=== PATIENT | female | born 1985 | race Caucasian/White ===

== ENCOUNTER 2019-11-20 12:26 | Outpatient (CLI) | payer OTHER, MEDICARE, MEDICAID, SELFPAY | END 2019-11-20 12:27 | disposition home or self-care (01) | PROVIDERS: PCP Internal Medicine; Visit Provider Internal Medicine | DX: L02.92 Furuncle, unspecified (principal) | CPT/HCPCS: 87081 ==

== ENCOUNTER 2022-07-26 16:10 | Emergency (ER) | payer MEDICARE, MEDICAID, SELFPAY ==
--- NOTE | 2022-07-26 16:17 | ED.EAR ---
HPI - Ear Problem General Chief complaint: Ear Stated complaint: EARACHE Time Seen by Provider: 07/26/22 16:17 Source: patient and RN notes reviewed History of Present Illness HPI Narrative: Patient is a 37-year-old female who presents to Urgent Care with her mother with complaints of left earache. Mother states that it started yesterday after she was outside swimming. Mother states that she did use her Flonase and her daily Zyrtec however the patient continued to complain of ?pounding and ringing in the ear. Patient is currently denying any pain, ringing or discomfort. Mother states that the home health nurse told her that she could have ?permanent hearing loss if she had fluid in her ear and ?. Therefore the mother is concerned about possible hearing loss. Patient appears to be comfortable with ear phones to her ears listening to music. No acute distress noted. Some parts of this dictation were generated by voice recognition software and may contain typographical and/or grammatical inaccuracies. Related Data Home Medications Medication Instructions Recorded Confirmed cholecalciferol (vitamin D3) 25 2,000 unit PO DAILY 12/08/20 02/15/22 mcg (1,000 unit) capsule cetirizine 10 mg tablet 10 mg PO DAILY PRN 07/06/21 02/15/22 Allergies Allergy/AdvReac Type Severity Reaction Status Date / Time No Known Allergies Allergy Mild Verified 07/26/22 16:21 Review of Systems Review of Systems: CONSTITUTIONAL: Denies fever, chills, or sweats. EYES: Denies visual changes, redness, or discharge. ENT: Denies rhinorrhea, congestion, sore throat. Reports of left otalgia CARDIOVASCULAR: Denies chest pain, palpitations, or edema. RESPIRATORY: Denies cough or dyspnea. GASTROINTESTINAL: Denies abdominal pain, nausea, vomiting, or diarrhea. GENITOURINARY: Denies dysuria or hematuria. SKIN: Denies rash or itching. MUSCULOSKELETAL: Denies back pain, joint pain, or myalgia. NEUROLOGIC: Denies headache, numbness, or weakness. All other systems reviewed are negative, except as documented in HPI. [facility] Past Medical History Medical History Abnormal finding of blood chemistry BMI 28.0-28.9,adult BMI 31.0-31.9,adult BMI 33.0-33.9,adult Boils Down syndrome Encounter for preventive health examination Encounter for routine adult health examination without abnormal findings Hydradenitis On snf drug therapy Family History Family History Mother Family history of osteoarthritis Family history of allergic disorder Patient's mother is in good health Family history of hypercholesterolemia Father Family history of Hodgkin's lymphoma Grandparent Cerebrovascular accident Family history of malignant neoplasm of esophagus Other Family history of arthritis Social History Social History (Updated 02/13/22 @ 11:21 by Silvia Rosales MA) Smoking status: Never smoker Second hand tobacco smoke exposure: No Alcohol intake: never Lack of Transportation: No Lack of Food: Never True Current Housing: I Have Housing Concerned About Future Housing: No Difficulty Paying Gas/Electric Bills: No Difficulty Paying for Meds: No Currently Unemployed: No Education: High School Diploma/GED Difficulty w/ Childcare or Family Care: No Comments At the time of my signature, I reviewed and agree with the nursing past medical, surgical, social, and family history. There is no relevant family history pertinent to the patient complaint. Exam Narrative: GENERAL: This is a well-nourished, well-developed patient, in no apparent distress. HEAD: normocephalic, atraumatic. EYES: PERRL. Sclera clear/white. Vision is grossly intact. EARS: External ears normal, auditory canals clear and without drainage, TMs normal without perforation. Hearing grossly intact. NOSE: External nose normal with no obvious nasal discharge, nares witho
[2022-07-26 16:25] VITALS: BP 88/79; PULSE 75; RESP 16; TEMP 36.4; O2SAT 100
== END 2022-07-26 17:17 | disposition home or self-care (01) ==
PROVIDERS: Emergency Provider Nurse Practitioner Family; PCP Internal Medicine
DX: H92.02 Otalgia, left ear (principal); Q90.9 Down syndrome, unspecified
CPT/HCPCS: 99211; G0463

== ENCOUNTER 2023-10-15 16:06 | Outpatient (CLI) | payer MEDICARE, MEDICAID, SELFPAY | END 2023-10-15 16:07 | disposition home or self-care (01) | PROVIDERS: PCP Internal Medicine; Visit Provider Internal Medicine | DX: R05.3 Chronic cough (principal) | CPT/HCPCS: 87081 ==

== ENCOUNTER 2023-10-16 11:00 | Outpatient (CLI) | payer MEDICARE, MEDICAID, SELFPAY ==
--- NOTE | ~2023-10-16 | XR_ITS ---
XR chest 2V Ordering provider: Benedicto Bolton MD History: 38 years Female with . R05.9 - Cough, unspecified - RECENTLY COVID -19+ . Comparison: March 11, 2013 FINDINGS: MEDIASTINUM: The cardiac silhouette is not enlarged. LUNGS: No infiltrates, effusions or pneumothorax. Prominent markings in the left lower lobe area. OTHER: No free air under the diaphragm. IMPRESSION: No acute cardiopulmonary pathology. Reviewed, dictated and finalized at location A.
[2023-10-16 11:20] LABS: Basophils Percent Auto 0.4 % (0.2-1.2); Eosinophils Absolute Auto 0.2 K/mm3 (0-0.3); Hematocrit 38.8 % (37.0-47.0); Hemoglobin 12.9 g/dL (12.0-15.0); Immature Granulocyte Absolute 0.02 K/mm3 (0.00-0.031); Immature Granulocyte Percent A 0.2 % (0-0.5); Lymphocytes Absolute Auto 1.49 K/mm3 (0.9-3.2); Lymphocytes Percent Auto 17.9 % (18.3-44.2); Mean Corpuscular HGB Conc 33.2 g/dl (32-36); Mean Corpuscular Hemoglobin 31.2 pg (26-34); Mean Corpuscular Volume 93.7 fl (80-100); Mean Platelet Volume 9.6 fl (7.4-10.4); Monocytes Absolute Auto 0.8 K/mm3 (0.1-0.6); Monocytes Percent Auto 9.5 % (2.6-8.5); Neutrophils Absolute Auto 5.8 K/mm3 (1.3-6.7); Platelet Count Result 339 k/mm3 (150-375); Red Blood Count 4.14 M/mm3 (4.2-5.4); Red Cell Distribution Width 12.5 % (11.5-14.5); White Blood Count 8.3 K/mm3 (4.5-10.0)
== END 2023-10-16 11:01 | disposition home or self-care (01) ==
PROVIDERS: PCP Internal Medicine; Visit Provider Internal Medicine
DX: R05.9 Cough, unspecified (principal); Z86.16 Personal history of COVID-19
CPT/HCPCS: 36415; 71046; 85025

== ENCOUNTER 2024-03-05 16:29 | Outpatient (CLI) | payer MEDICARE, MEDICAID, SELFPAY ==
--- NOTE | ~2024-03-05 | CT_ITS ---
EXAMINATION:CT diagnostic chest wo con DATE: 03/05/2024 16:50 INDICATION: Cough, unspecified. TECHNIQUE: Computed tomography (CT) of the chest was performed without intravenous contrast. Automate d exposure control and iterative reconstruction technique were employed. The dose-length product (DLP ) was 411.60 mGy-cm. COMPARISON: Chest 2 views 10/16/2023 FINDINGS: There is no pneumonia or bronchiectasis. No pleural effusion. The heart size is normal. The re is a small pericardial effusion. There is mild thoracic spondylosis. IMPRESSION: 1. Small pericardial effusion. Reviewed, dictated and finalized at location A. BOAT ENGINEER
== END 2024-03-05 16:30 | disposition home or self-care (01) ==
PROVIDERS: PCP Internal Medicine; Visit Provider Internal Medicine
DX: R05.9 Cough, unspecified (principal); I31.39 Other pericardial effusion (noninflammatory)
CPT/HCPCS: 71250

== ENCOUNTER 2024-03-07 08:32 | Outpatient (CLI) | payer MEDICARE, MEDICAID, SELFPAY ==
--- NOTE | ~2024-03-07 | XR_ITS ---
EXAMINATION: XR barium swallow DATE: 03/07/2024 09:14 INDICATION: Cough TECHNIQUE: The patient drank thick barium, and thin barium. Fluoroscopy of the hypopharynx and esopha davina was performed. Fluoroscopy exposure time was 2.3 minutes. The total number of images was 79. The dose-area product was 27.2 Gy-cm^2. COMPARISON: Reference is made to CT examination of the chest dated 03/05/2024 FINDINGS: There is no mass or stricture of the esophagus. Esophageal motility is unremarkable. There is only a small hiatal hernia. Trace gastroesophageal reflux was observed. IMPRESSION: Small hiatal hernia with trace gastroesophageal reflux Reviewed, dictated and finalized at location A. A RECONCILIATION SPECIALIST
== END 2024-03-07 08:33 | disposition home or self-care (01) ==
LOC: ANHIMG 08:33
PROVIDERS: PCP Internal Medicine; Visit Provider Internal Medicine
DX: K44.9 Diaphragmatic hernia without obstruction or gangrene (principal); R05.9 Cough, unspecified
CPT/HCPCS: 74220

== ENCOUNTER 2024-08-18 12:20 | Outpatient (CLI) | payer MEDICARE, MEDICAID, SELFPAY ==
--- NOTE | ~2024-08-18 | XR_ITS ---
Clinical Indication: Cough PA and lateral views of the chest: Comparison: 10/16/2023 Findings: The lungs are clear, without evidence of focal consolidation or pleural effusion. Cardiome diastinal silhouette is within normal limits. Bones and soft tissues are unremarkable. Impression: Normal chest. Reviewed, dictated and finalized at location . Impression: Normal chest.
--- OUTSIDE RECORDS SUMMARY | 2024-08-18 12:46 | XMS_ITS | Continuity of Care Document ---
Author Organization [facility] Address [address] [place] [address] Phone Care Team Providers Care Resident Doctor Name Role Phone James Delaney Unavailable Unavailable Procedures Procedure Date Eye Exam & Treatment Refraction Eye Exam & Treatment Refraction Eye Exam & Treatment Advance Directives Directive Yes / No Effective Date File Name No Information Encounters Encounter Description Practice Location Reason(s) For Visit Diagnoses Date Provider Providers Copied on Encounter [facility], [id number] [place] [address] [address], [place], [place], [id number], [place] tel:[phone] [facility] No Information 6-201 0 Rhett Ramirez. [address], [place], [place], [facility], . tel:[phone] [facility], [address], [place], [place], [id number], [place] tel:[phone] [facility] No Information 2-200 9 Kinza Roberts. [address], [place], [place], [facility], [place]. tel:[phone] [facility], [address], [place], [place], [id number], [place] tel:[phone] [facility] No Information 8 Rhett Ramirez. [address] , [address], [place], [address], [place]. tel:[phone] Family History Family Member Type Diagnosis Age At Onset No Information Payers Payer name Insurance type Covered alliance party ID Authoriza tion(s) No Information Social History Type Description Quantity Date Captured Comments Sex Female Smoking Status No Information Chief Complaint And Reason For Visit No Information Reason For Referral Reason For Referral No Information History Of Present Illness Encounter Date Complaint History Of Prese nt Illness No Information Functional Status Date Functional Assessmen t No Information Instructions Date Instruction Additional Infor mation No Information Assessments Type Assessment Date No Information Patient Care Teams Name Effective Dates (start - stop) Status Members No Information
--- OUTSIDE RECORDS SUMMARY | 2024-08-18 12:46 | XMS_ITS | Clinical Summary ---
Author Organization [facility] Address [address] [place] [address] Care Team Providers Care Straight Line Edger Name Role Phone Benedicto Bolton MD Primary Care Provider [phone] Source Comments [facility],non-[facility] Affiliates and Associated Physician Practices is amultiple site organization consisting of ambulatory clinics and hospital sitesin [place], [place], [place] and [place]. This disclosure is being madepursuant to the Care Everywhere program and may not contain all information available regarding this patient. Last updated 18.[facility] Allergies No known active allergies Medications * Be aware that medications may not be up to date on this document. Alwaysverify current medications with the patient. fluticasone propionate (FLONASE) 50 MCG/ACT nasal spray [place] 2 sprays into each nostril once daily Active hydrocortisone (HYTONE) 2.5 % ointmentIndicatio ns:Rash and other nonspecific skin eruption Apply to irritated pink area near eye twice daily for 1 week. 30 days supply. 30 g 8 Active Additional Information Patient not taking.Reported on 06/04/2018 ketoconazole (NIZORAL) 2 % creamIndications: Other seborrheic dermatitis Apply to pink scaly area near eye twice daily as needed. 30 days supply. 60 g 2 8 Active ketoconazole (NIZORAL) 2 % shampooIndication s:Other seborrheic dermatitis Apply to wet scalp and face, leave on for 3-5 minutes, then rinse; three times weekly. 30 days supply 120 mL 2 8 Active VITAMIN D, CHOLECALCIFEROL, PO Take 1 tablet by mouth once daily Active Calcium Polycarbophil (FIBERCON PO) Take 1 tablet by mouth once daily Active cetirizine (ZYRTEC) 10 MG tablet Take 10 mg by mouth once daily Active docusate sodium (COLACE) 100 MG capsule Take 100 mg by mouth once daily Active tacrolimus (PROTOPIC) 0.1 % ointmentIndicatio ns:Other seborrheic dermatitis Apply to facial lesions two times daily. 30 days supply. 60 g 3 9 Active doxycycline monohydrate 100 MG capsuleIndication s:Hidradenitis suppurativa Take 1 capsule by mouth 2 times daily 60 capsule 2 9 Active triamcinolone acetonide (KENALOG) 0.1 % ointmentIndicatio ns:Granuloma annulare,Other eczema Apply BID PRN to lesions on the body and arms. 30 day supply 454 g 1 9 Active Active Problems No known active problems Immunizations Immunization Administration Dates Next Due FLU VACCINE QUAD IIV4 PF ID 01/25/2016 INFLUENZA VACCINE, QUADR. (F LUZONE; FLULAVAL; FLUARIX; AFLURIA QUADRIVALENT; 6MO+), 0.5 ML (IIV4) 12/07/2017,01/10/2017 Family History Medical History Relation Name Comments Asthma Neg Hx CVA Neg Hx Cancer - Breast Neg Hx Cancer - Other Neg Hx Cancer - Skin, Melanoma Neg Hx Cancer - Skin, Non Melanoma Neg Hx Eczema Neg Hx Hemophilia Neg Hx Psoriasis Neg Hx Social History Tobacco Use Types Packs/Day Years Used Date Smoking Tobacco: Never Smokeless Tobacco: Never Alcohol Use Standard Drinks/Week Comments No 0 (1 standard drink = 0.6 oz pur e alcohol) Comments Unknown Sex and Gender Information Value Date Recorded Sex Assigned at Not on file Legal Sex Female 2:05 PM CDT Gender Identity Not on file Sexual Orientation Not on file Plan of Treatment Health Maintenance Due Date Last Done Comments HIV SCREENING 2001 HEPATITIS C SCREENING 12/28/2003 DTAP/TDAP/TD VACCINES (1 - Tdap) 2005 HEPATITIS B VACCINE (1 of 3 - 19+ 3-dose series) 2005 COVID-19 VACCINE (1 2023-2 5 season) 2023 DEPRESSION SCREENING 04/16/2024 INFLUENZA VACCINE (Season Ended) 2024 12/07/2017, 01/10/2017, 01/25/2016 ZOSTER VACCINE (1 of 2) 01/02/2036 HIB VACCINE Aged Out No longer eligi ble based on patient's age to complete this topic HPV VACCINE Aged Out No longer eligi ble based on patient's age to complete this topic MENINGOCOCCAL (Group B) VACCINE SHARED DECISION-MAKING Aged Out No longer eligible based on patient's age to complete this topic MENINGOCOCCAL GROUPS A/C/Y/W VACCINE Aged Out No longer eligible b ased on patient's age to complete this topic PNEUMOCOCCAL VACCINE Aged Out No long er eligible based on patient's age to complete this topic Insurance [facility] MEDICAID - OUT OF [facility] MEDICARE ANTH Care Teams Straight Line Edger Relationship Specialty Start Date End Date Benedicto Bolton MD [address] [place] [address] PCP - General Internal Medicine 01/25/16
[2024-08-21 16:58] LABS: B. pertussis Source Swab
== END 2024-08-18 12:21 | disposition home or self-care (01) ==
PROVIDERS: PCP Internal Medicine; Visit Provider Internal Medicine
DX: R05.9 Cough, unspecified (principal)
CPT/HCPCS: 71046; 87798

== ENCOUNTER 2024-09-12 07:09 | Outpatient (CLI) | payer MEDICARE, MEDICAID, SELFPAY ==
--- NOTE | ~2024-09-12 | CT_ITS ---
CT Scan of the Chest without Contrast: Clinical Indication: Cough Technique: Contiguous sections were acquired throughout the chest without intravenous contrast. Dose reduction technique was used on this scan by utilizing automated exposure control and iterative recon struction technique. The dose-length product (DLP) was 383.55 mGy-cm. COMPARISON: 03/05/2024 Findings: There is no evidence of any significant mediastinal, hilar or axillary lymphadenopathy. The mediastin al soft tissues appear normal. There is no evidence of pleural or pericardial effusion. The lungs are clear. No pulmonary nodules or infiltrates are noted. Images through the upper abdomen reveal no abnormalities. Impression: No significant abnormalities seen. Reviewed, dictated and finalized at location . Impression: No significant abnormalities seen.
--- OUTSIDE RECORDS SUMMARY | 2024-09-12 07:14 | XMS_ITS | Continuity of Care Document ---
Author Organization [facility] Address [address] [place] [address] Phone Care Team Providers Care Tourist Agent Name Role Phone James Delaney Unavailable Unavailable Procedures Procedure Date Eye Exam & Treatment Refraction Eye Exam & Treatment Refraction Eye Exam & Treatment Advance Directives Directive Yes / No Effective Date File Name No Information Encounters Encounter Description Practice Location Reason(s) For Visit Diagnoses Date Provider Providers Copied on Encounter [facility], [id number] [place] [address] [address], [place], [place], [id number], [place] tel:[phone] [facility] No Information 6-201 0 Rhett Ramirez. [address], [place], [place], [facility], . tel:[phone] [facility], [address], [place], [place], [id number], [place] tel:[phone] [facility] No Information 2-200 9 Kinza Roberts. [address], [place], [place], [facility], [place]. tel:[phone] [facility], [address], [place], [place], [id number], [place] tel:[phone] [facility] No Information 8 Rhett Ramirez. [address] , [address], [place], [address], [place]. tel:[phone] Family History Family Member Type Diagnosis Age At Onset No Information Payers Payer name Insurance type Covered republican ID Authoriza tion(s) No Information Social History [...]
--- OUTSIDE RECORDS SUMMARY | 2024-09-12 07:14 | XMS_ITS | Clinical Summary ---
Author Organization [facility] Address [address] [place] [address] Care Team Providers Care Tosser Name Role Phone Benedicto Bolton MD Primary Care Provider [phone] Source Comments [facility],non-[facility] Affiliates and Associated Physician Practices is amultiple site organization consisting of ambulatory clinics and hospital sitesin [place], [place], [place] and [place]. This disclosure is being madepursuant to the Care Everywhere program and may not contain all information available regarding this patient. Last updated 18.[facility] Allergies No known active allergies Medications * Be aware that medications may not be up to date on this document. Alwaysverify current medications with the patient. fluticasone propionate (FLONASE) 50 MCG/ACT nasal spray [place] 2 sprays into each nostril once daily [...] patient's age to complete this topic Insurance [facility] MEDICAID - OUT OF [facility] MEDICARE ANTH Care Teams Tosser Relationship Specialty Start Date End Date Benedicto Bolton MD [address] [place] [address] PCP - General Internal Medicine 01/25/16
== END 2024-09-12 07:10 | disposition home or self-care (01) ==
PROVIDERS: PCP Internal Medicine; Visit Provider Internal Medicine
DX: R05.9 Cough, unspecified (principal)
CPT/HCPCS: 71250

== ENCOUNTER 2024-12-05 14:51 | Outpatient (CLI) | payer MEDICARE, MEDICAID, SELFPAY ==
--- NOTE | ~2024-12-05 | XR_ITS ---
EXAMINATION: XR chest 2V 12/05/2024 15:13 INDICATION: Cough PROCEDURE: 2 view chest COMPARISON: 08/18/2024 FINDINGS: The lungs are clear. The cardiomediastinal silhouette is within normal limits. There are no pleural effusions. There is no pneumothorax suspected. IMPRESSION: 1: NO ACUTE CARDIOPULMONARY DISEASE. Reviewed, dictated and finalized at location O.
--- OUTSIDE RECORDS SUMMARY | 2024-12-05 14:56 | XMS_ITS | Clinical Summary ---
Author Organization [facility] Address [address] [place] [id number] Care Team Providers Care Special Effects Artist Name Role Phone Benedicto Bolton MD Primary Care Provider [phone] Allergies Active Allergy Reactions Criticality Noted Date Comments Haloperidol Encounters Date Type Department Care Team Description 09/12/2024 12:06 PM CDT - 09/12/2024 11:59 PM CDT Hospital Encounter [facility] [address] [place] [id number] Cough, unspecified type Discharge Disposition: Discharge to home or self care from Last 3 Months Social History Tobacco Use Types Packs/Day Years Used Date Smoking Tobacco: Never Assessed Comments Unknown Sex and Gender Information Value Date Recorded Sex Assigned at Not on file Legal Sex Female 2:17 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 Gender Identity Not on file Sexual Orientation Not on file Obstetrics History Last Filed Vital Signs Vital Sign Reading Time Taken Comments Blood Pressure 140/91 12/19/2011 12:21 PM CDT Pulse 92 12/19/2011 12:21 PM CDT Temperature - - Respiratory Rate - - Oxygen Saturation 98% 12/19/2011 12:21 PM CDT Inhaled Oxygen Concentration - - Weight 90 kg (198 lb 6.6 oz) 12/15/2011 5:43 PM CDT Height 155 cm (5' 1.02) 12/15/2011 5:43 PM CDT Body Mass Index 37.46 12/15/2011 5:43 PM CDT Plan of Treatment Health Maintenance Due Date Last Done Comments Cervical Cancer Screening 1986 Depression Screening 1986 Hepatitis C Screening 1986 DTaP/Tdap/Td Vaccine (1 - Tdap) 1997 Varicella Vaccines (1 of 2 - 13+ 2-dose series) 1999 Hepatitis B Screening 01/02/2004 Regular Well Visit/Exam 18-64 01/02/2004 HPV Vaccines (2 - 3-dose series) 03/25/2007 02/25/2007 Influenza Vaccine (#1) 2024 , 01/02/2023, 12/24/2021, Additional history exists Pneumococcal vaccine <65 Aged Out 03/10/2014 No longer eligible based on patient's age to complete this topic Covid-19 Vaccine Completed 03/10/2024, , 12/30/2021, Additional history exists Procedures Procedure Name Priority Date/Time Associated Diagnosis Comments FL ESOPHAGRAM, DOUBLE CONTRAST Schedule Routine, Read Routine (OP Routine) 09/12/2024 1:43 PM CDT Cough, unspecified type FL UPPER GI SERIES, DOUBLE CONTRAST Schedule Routine, Read Routine (OP Routine) 09/12/2024 1:43 PM CDT Cough, unspecified type from Last 3 Months Results * FL Esophagram, Double Contrast (09/12/2024 1:43 PM CDT) Anatomical Region Laterality Modality Body N/A Computed Radiogr aphy, Computed Radiography 09/12/2024 4:22 PM CDT Narrative 09/12/2024 4:27 PM CDT EXAM DESCRIPTION: FL UPPER GI SERIES, DOUBLE CONTRAST; FL ESOPHAGRAM BARIUM SWALLOW TO STOMACH, DOUBLE CONTRAST REASON FOR STUDY: cough Cough, esophagram on 03-07-24, bronchitis x1 year ago. COMPARISON: None RADIATION DOSE: Dose: 1612.9 uGym2 Dose Area Product (DAP) TECHNIQUE: Patient ingested effervescent granules followed by thick and thin barium. FINDINGS: ESOPHAGEAL MOTILITY: Normal peristalsis. No esophageal spasm. ESOPHAGEAL MUCOSA: Normal mucosa without masses or ulceration. GASTRO-ESOPHAGEAL JUNCTION: No hiatal hernia or reflux. STOMACH: Normal without masses or ulcerations. GASTRIC OUTLET: No delay in emptying. Normal pylorus. DUODENAL BULB: Normal distention. No spasm or ulceration. DUODENUM: Mucosa normal. No extrinsic masses or malrotation. PROXIMAL SMALL BOWEL: Mucosa normal. No extrinsic masses or malrotation. NON-GI TRACT STRUCTURES: No significant finding. OTHER: No other significant finding. IMPRESSION: Normal double contrast barium swallow / upper GI series. THIS IS AN ELECTRONICALLY VERIFIED FINAL REPORT 09/12/2024 4:27 PM - Electronically signed by Joelle Garcia M.D. FT T: Report ID: [id number] Reading Location: [id number] Procedure Note Joelle Chong MD - 09/12/2024 EXAM DESCRIPTION: FL UPPER GI SERIES, DOUBLE CONTRAST; FL ESOPHAGRAMBARIUM SWALLOW TO STOMACH, DOUBLE CONTRAST REASON FOR STUDY: cough Cough, esophagram on 03-07-24, bronchitis x1 year ago. COMPARISON: None RADIATION DOSE: Dose: 1612.9 uGym2 Dose Area Product (DAP) TECHNIQUE: Patient ingested effervescent granules followed by thick andthin barium. FINDINGS: ESOPHAGEAL MOTILITY: Normal peristalsis. No esophageal spasm. ESOPHAGEAL MUCOSA: Normal mucosa without masses or ulceration. GASTRO-ESOPHAGEAL JUNCTION: No hiatal hernia or reflux. STOMACH: Normal without masses or ulcerations. GASTRIC OUTLET: No delay in emptying. Normal pylorus. DUODENAL BULB: Normal distention. No spasm or ulceration. DUODENUM: Mucosa normal. No extrinsic masses or malrotation. PROXIMAL SMALL BOWEL: Mucosa normal. No extrinsic masses ormalrotation. NON-GI TRACT STRUCTURES: No significant finding. OTHER: No other significant finding. IMPRESSION: Normal double contrast barium swallow / upper GI series. THIS IS AN ELECTRONICALLY VERIFIED FINAL REPORT 09/12/2024 4:27 PM - Electronically signed by Joelle Garcia M.D. FT T: Report ID: [id number] Reading Location: [id number] Benedicto Bolton MD IMG FLUOROSCOPY PROCEDURES Fi nal Result * FL Upper GI Series, Double Contrast (09/12/2024 1:43 PM CDT) Anatomical Region Laterality Modality Body N/A Computed Radiogr aphy, Computed Radiography 09/12/2024 4:22 PM CDT Narrative 09/12/2024 4:27 PM CDT EXAM DESCRIPTION: FL UPPER GI SERIES, DOUBLE CONTRAST; FL ESOPHAGRAM BARIUM SWALLOW TO STOMACH, DOUBLE CONTRAST REASON FOR STUDY: cough Cough, esophagram on 03-07-24, bronchitis x1 year ago. COMPARISON: None RADIATION DOSE: Dose: 1612.9 uGym2 Dose Area Product (DAP) TECHNIQUE: Patient ingested effervescent granules followed by thick and thin barium. FINDINGS: ESOPHAGEAL MOTILITY: Normal peristalsis. No esophageal spasm. ESOPHAGEAL MUCOSA: Normal mucosa without masses or ulceration. GASTRO-ESOPHAGEAL JUNCTION: No hiatal hernia or reflux. STOMACH: Normal without masses or ulcerations. GASTRIC OUTLET: No delay in emptying. Normal pylorus. DUODENAL BULB: Normal distention. No spasm or ulceration. DUODENUM: Mucosa normal. No extrinsic masses or malrotation. PROXIMAL SMALL BOWEL: Mucosa normal. No extrinsic masses or malrotation. NON-GI TRACT STRUCTURES: No significant finding. OTHER: No other significant finding. IMPRESSION: Normal double contrast barium swallow / upper GI series. THIS IS AN ELECTRONICALLY VERIFIED FINAL REPORT 09/12/2024 4:27 PM - Electronically signed by Joelle Garcia M.D. FT T: Report ID: [id number] Reading Location: [id number] Procedure Note Joelle Chong MD - 09/12/2024 EXAM DESCRIPTION: FL UPPER GI SERIES, DOUBLE CONTRAST; FL ESOPHAGRAMBARIUM SWALLOW TO STOMACH, DOUBLE CONTRAST REASON FOR STUDY: cough Cough, esophagram on 03-07-24, bronchitis x1 year ago. COMPARISON: None RADIATION DOSE: Dose: 1612.9 uGym2 Dose Area Product (DAP) TECHNIQUE: Patient ingested effervescent granules followed by thick andthin barium. FINDINGS: ESOPHAGEAL MOTILITY: Normal peristalsis. No esophageal spasm. ESOPHAGEAL MUCOSA: Normal mucosa without masses or ulceration. GASTRO-ESOPHAGEAL JUNCTION: No hiatal hernia or reflux. STOMACH: Normal without masses or ulcerations. GASTRIC OUTLET: No delay in emptying. Normal pylorus. DUODENAL BULB: Normal distention. No spasm or ulceration. DUODENUM: Mucosa normal. No extrinsic masses or malrotation. PROXIMAL SMALL BOWEL: Mucosa normal. No extrinsic masses ormalrotation. NON-GI TRACT STRUCTURES: No significant finding. OTHER: No other significant finding. IMPRESSION: Normal double contrast barium swallow / upper GI series. THIS IS AN ELECTRONICALLY VERIFIED FINAL REPORT 09/12/2024 4:27 PM - Electronically signed by Joelle Garcia M.D. FT T: Report ID: [id number] Reading Location: [place] [address] Benedicto Bolton MD IMG FLUOROSCOPY PROCEDURES Fi nal Result from Last 3 Months Insurance [facility] MEDICARE ADVANTAGE [facility] Address: [address] [address] [place] [address] [employer] Care Teams Special Effects Artist Relationship Specialty Start Date End Date Benedicto Bolton MD [address] [place] [address] PCP - General Internal Medicine 09/10/24
--- OUTSIDE RECORDS SUMMARY | 2024-12-05 14:56 | XMS_ITS | Clinical Summary ---
Author Organization [facility] Address [address] [place] [address] Care Team Providers Care Program Assistant Name Role Phone Benedicto Bolton MD Primary Care Provider [phone] Source Comments [facility] Affiliates and Associated Physician Practices is amultiple site organization consisting of ambulatory clinics and hospital sitesin [place], [place], [place] and [place]. This disclosure is being madepursuant to the Care Everywhere program and may not contain all information available regarding this patient. Last updated 18.[facility] Allergies No known active allergies Medications * Be aware that medications may not be up to date on this document. Alwaysverify current medications with the patient. fluticasone propionate (FLONASE) 50 MCG/ACT nasal spray [place] 2 sprays into each nostril once daily [...] of 3 - 19+ 3-dose series) 2005 HPV VACCINE (1 - 3-dose SCDM series) 2013 COVID-19 VACCINE (1 - 2023-2 5 season) 2023 DEPRESSION SCREENING 04/16/2024 INFLUENZA VACCINE (#1) 2024 8, 01/10/2017, 01/25/2016 ZOSTER VACCINE (1 of 2) [...] patient's age to complete this topic Insurance [facility] MEDICAID - OUT OF COMMUNITY [facility] MEDICARE [facility] Address: [address] [place] [address] Care Teams Program Assistant Relationship Specialty Start Date End Date Benedicto Bolton MD [address] [place] [address] PCP - General Internal Medicine 01/25/16
== END 2024-12-05 14:52 | disposition home or self-care (01) ==
PROVIDERS: PCP Internal Medicine; Visit Provider Internal Medicine
DX: R05.9 Cough, unspecified (principal)
CPT/HCPCS: 71046